=== PATIENT | female | born 1975 | race Two or more races ===

== ENCOUNTER → 2025-05-10 | Outpatient (CLI) | payer MEDICAID, SELFPAY ==
--- NOTE | 2025-05-10 15:00 | XR_ITS ---
Examination: Pelvic ultrasound, transabdominal, complete Technique: Transabdominal ultrasound of the pelvis performed using grayscale imaging Date and time of exam: May 10, 2025 1552 hours INDICATIONS: Irregular intermittent vaginal bleeding years FINDINGS: Uterus 13.4 cm diffuse leiomyomatous change No discrete solid uterine masses Benign uterine body cyst 14 mm Endometrial stripe 2.2 cm Right ovary 5.3 cm arterial flow 3.7 x 2.9 x 3.1 cm simple cyst Left ovary 2.5 cm arterial flow IMPRESSION: Diffuse leiomyomatous change within the uterus Endometrial stripe 2.2 cm, if the patient is postmenopausal recommend follow-up transvaginal pelvic sonography with specific attention to the endometrium
--- NOTE | 2025-05-10 15:00 | XR_ITS ---
Examination: Transvaginal ultrasound of the pelvis, complete Technique: Transvaginal sonographic images pelvis performed using godoy scale imaging Exam date and time: May 10, 2025 1552 hours INDICATIONS: Irregular vaginal bleeding beginning 3 years ago. FINDINGS: Uterus 12.7 cm diffuse leiomyomatous change Benign cysts Endometrial stripe 3.5 cm Right ovary 4.9 cm arterial flow 35 x 33 x 2 33 mm cyst Left ovary obscured by bowel gas IMPRESSION: Diffuse leiomyomatous change within the enlarged uterus Thickened endometrial stripe 3.5 cm, if the patient is postmenopausal this thickening is abnormal, endometrial hyperplasia versus early malignant neoplasm of the uterus, clinical correlation advised.
== END | disposition home or self-care (01) ==
PROVIDERS: PCP Nurse Practitioner Primary Care; Referring Provider Nurse Practitioner Primary Care; Visit Provider Nurse Practitioner Primary Care
DX: N85.2 Hypertrophy of uterus (principal); R93.89 Abnormal findings on diagnostic imaging of other specified body structures
CPT/HCPCS: 76830; 76856

== ENCOUNTER 2025-08-19 07:35 | Emergency (ER) | payer MEDICAID, SELFPAY ==
--- NOTE | 2025-08-19 08:03 | XR_ITS ---
EXAMINATION: XR sacrum coccyx min 2V ORDERING PROVIDER: VICKY Valdes HISTORY: trauma TECHNIQUE: 3 radiographs of the sacrum and coccyx were obtained. COMPARISON: None. FINDINGS: No acute fracture or dislocation. Alignment anatomic. Soft tissue swelling posterior to the coccyx. Probable injection granuloma subcutaneous soft tissues overlying the coccyx/sacrum. Mild degenerative changes of the bilateral hips and lower lumbar spine. IMPRESSION: Soft tissue swelling without acute bony findings.
--- NOTE | 2025-08-19 08:03 | XR_ITS ---
EXAMINATION: XR knee RT 3V ORDERING PROVIDER: VICKY Valdes HISTORY: trauma TECHNIQUE: 3 radiographs of the right knee were obtained. COMPARISON: None. FINDINGS: BONES: No acute fracture or dislocation. ALIGNMENT: Normal. JOINTS: Trace suprapatellar effusion. Minimal medial compartment osteophyte formation. BONY MINERALIZATION: Normal. SOFT TISSUES: Mild pretibial soft tissue swelling. IMPRESSION: Mild soft tissue swelling and small effusion without acute bony findings.
--- NOTE | 2025-08-19 08:05 | PD.EDLOWEX ---
Lower Extremity Injury RME/HPI General Chief Complaint: Extremity Injury, Lower Stated Complaint: HIT R) KNEE HARD ON FLOOR Time Seen by Provider: 08/19/25 07:41 Source: patient Arrival date/time: 08/19/25 07:35 50-year-old female with no known medical history presents to the emergency room with a chief complaint of right knee tenderness and swelling and sacrum pain after a ground-level fall that occurred yesterday afternoon. Mode of arrival: ambulatory Limitations: no limitations Related Data Home Medications ?Medication ?Instructions ?Recorded ?Confirmed No Known Home Medications 10/05/21 10/06/21 Allergies Allergy/AdvReac Type Severity Reaction Status Date / Time No Known Allergies Allergy Verified 08/19/25 07:38 Review of Systems Review of Systems Systems Reviewed: All systems reviewed, normal except as documented Constitutional Constitutional: Reports system reviewed and no additional complaints, except as documented, Denies fatigue, Denies fever(s), Denies headache(s) and Denies weakness Eyes Eyes: Reports system reviewed and no additional complaints, except as documented, Denies blurry vision and Denies change in vision ENT Ears, Nose, Mouth, and Throat: Reports system reviewed and no additional complaints, except as documented, Denies otalgia, Denies headache(s), Denies nasal congestion, Denies throat swelling and Denies vertigo Cardiovascular Cardiovascular: Reports system reviewed and no additional complaints, except as documented, Denies chest pain, Denies dyspnea and Denies dyspnea on exertion Respiratory Respiratory: Reports system reviewed and no additional complaints, except as documented, Denies chest congestion, Denies cough, Denies dyspnea, Denies dyspnea on exertion and Denies wheezing Gastrointestinal Gastrointestinal: Reports system reviewed and no additional complaints, except as documented, Denies abdominal pain, Denies cramping, Denies nausea and Denies vomiting Genitourinary Genitourinary: Reports system reviewed and no additional complaints, except as documented Musculoskeletal Musculoskeletal: Reports system reviewed and no additional complaints, except as documented, Reports abnormal gait, Reports arthralgias and Reports back pain Integumentary/Breasts Skin/Breast: Reports system reviewed and no additional complaints, except as documented and Denies wounds Neurologic Neurologic: Reports system reviewed and no additional complaints, except as documented, Reports abnormal gait, Denies confusion, Denies headache(s), Denies lack of coordination, Denies vertigo and Denies weakness Psychiatric Psychiatric: Reports system reviewed and no additional complaints, except as documented, Denies anxiety, Denies confusion, Denies depression, Denies paranoia, Denies suicidal ideation and Denies tactile hallucinations Endocrine Endocrine: Reports system reviewed and no additional complaints, except as documented and Denies fatigue Hematologic/Lymphatic Hematologic/Lymphatic: Reports system reviewed and no additional complaints, except as documented and Denies lymphadenopathy Allergic/Immunologic Allergic/Immunologic: Reports system reviewed and no additional complaints, except as documented, Denies throat swelling, Denies urticaria and Denies wheezing Past Medical History Past Medical History NEUROLOGIC: Negative Neurological Disorders or Seizures CARDIAC: Negative Cardiac Disorders, Congestive Heart Failure, Edema, Cellulitis or Varicose Veins RESPIRATORY: Negative Chronic Obstructive Pulmonary Disease (COPD), Tuberculosis, Pulmonary Embolism or Sleep Apnea GASTROINTESTINAL: Positive Gastrointestinal Disorders; Negative Hepatitis GENITOURINARY: Negative Genitourinary Disorders or Renal Disease REPRODUCTIVE: Positive Previous Pregnancies (X8) MUSCULOSKELETAL: Negative Musculoskeletal Disorders ENDOCRINE: Negative Endocrine Disorders, Diabetes Mellitus Type 1 or Diabetes Mellitus Type 2 HEMATOLOGIC: Negative Blood Disorders OTHER HISTORY: Negative Hospitalization, Autoimmune Disease, Shingles, Falls, Blood Transfusions, Blood Transfusion Reaction, Anesthesia Reactions, Chemotherapy, Radiation Therapy, Chicken Pox, Measles, Mumps or Cancer Family History FAMILY HISTORY: Positive Family Cardiac Disorders (MOTHER (HTN),FATHER (CHOLESTEROL)) and Family Surgery (MOTHER); Negative Family Psychiatric Problems, Family Respiratory Disorders, Family Gastrointestinal Problems, Family Cancer or Family Anesthesia Reaction Surgical History SURGICAL: Positive Section (X2); Negative Pacemaker Social History SMOKING STATUS: Never smoker ED Exam General Limitations: Present no limitations General appearance: Present alert and in no apparent distress Head Head exam: Present atraumatic Eye Eye exam: Present normal appearance, PERRL and EOMI ENT ENT exam: Present normal exam, normal oropharynx and mucous membranes moist Neck Neck exam: Present normal inspection, full ROM and trachea midline Chest Chest inspection: Present normal inspection and symmetric chest wall rise Respiratory Respiratory exam: Present normal lung sounds bilaterally Cardiovascular Cardiovascular exam: Present regular rate, normal rhythm and normal heart sounds Abdominal Exam Abdominal exam: Present soft and normal bowel sounds Extremities Exam Extremities exam: Present normal inspection and full ROM Expanded Lower Extremity Exam Hip/Pelvis exam: Present normal inspection Upper leg exam: Present normal inspection Knee exam: Present full ROM, tenderness and swelling Back Exam Back exam: Present normal inspection, full ROM and vertebral tenderness Back 1 view image:  1. Tenderness with palpation of the sacrum Neurological Exam Neurological exam: Present alert, oriented X3 and CN II-XII intact Psychiatric Psychiatric exam: Present normal affect and normal mood Skin Skin exam: Present warm, dry, intact and normal color Course Quality Measures none Orders Category Date Time Status XR knee RT 3V Stat Exams 08/19/25 08:03 Completed XR sacrum coccyx min 2V Stat Exams 08/19/25 08:03 Completed Vital Signs Vital signs: Vital Signs Temperature 98.5 F 08/19/25 08:09 Pulse Rate 89 08/19/25 08:09 Respiratory Rate 18 08/19/25 08:09 Blood Pressure 114/76 08/19/25 08:09 Pulse Oximetry (%) 99 08/19/25 08:09 Oxygen Delivery Method Room Air 08/19/25 08:09 Extremity Injury, Lower MDM Narrative MDM Narrative:: 50-year-old female with no known medical history presents to the emergency room with a chief complaint of right knee tenderness and swelling and sacrum pain after a ground-level fall that occurred yesterday afternoon. Patient is hemodynamically stable and in no apparent distress Physical examination shows tenderness and mild swelling in the right knee. The patient is ambulating and has full range of motion. Patient is also complaining of tenderness to the sacrum. Patient has tenderness with palpation of the sacrum and states she is having pain when sitting. X-ray of the knee and sacrum were completed and were negative for any acute fracture or dislocation Patient was discharged and educated to follow-up with primary care provider in the next 24 to 48 hours and return to the emergency room for any evidence of worsening signs or symptoms Patient data External records reviewed:: [facility] previous records Clinical information provided by:: patient Social determinants that could affect healthcare access:: none Patient has the following chronic illnesses:: No chronic illness How is presenting disease/condition affected by chronic disease/condition?: no chronic disease Evaluation data The following diagnostics were reviewed and interpreted by me:: lab results and radiology exam(s) Lab and/or radiology exams considered but not ordered:: Labs and radiology exams considered and ordered Interpretation Summary: X-ray sacrum-no acute fracture X-ray knee-no acute fracture or dislocation Medications / Prescriptions Medications or Prescriptions considered but not ordered:: Medication not given Medication administrations:: Rx given Consultations Consultation(s) initiated? (list below): No Diagnosis Extremity Injury, Lower Differential Diagnosis: other (Knee sprain/knee fracture/knee dislocation) Most likely diagnosis given after review of the tests above:: Knee sprain Admission Indicated Admission indicated?: not indicated Admission Request Was there a request for admission?: No Disposition Plan Disposition Plan: Discharge Discharge Attestation Discharge Attestation: The patient and all family members were given an opportunity to ask questions and understood the discharge instructions. Discharge instructions specifically effects, indications for sooner follow up or return to the emergency department, and the expected course of current diagnosis. Patient condition: Stable Discharge Plan Plan Patient Disposition: HOME (Self Care) Discharge Disposition comment: Stable Prescriptions/Referrals Prescriptions/Med Rec: No Action No Known Home Medications Referrals: Parisa Cole PA-C [Primary Care Provider] - In 1 week Problem List Clinical Impression: Knee sprain Patient/Caregiver Discharge Instructions Education Materials: ED CARIDAD Wrap, ED Knee Sprain Additional Instructions: Please follow-up with your primary care provider in the next 24 to 48 hours X-rays of your knee and back bone were negative for any acute fracture or dislocation For any evidence of worsening signs or symptoms return to the emergency room immediately Print Language: English Stand Alone Forms: Arabella Award Info., Work/School Release, Patient Portal Info Letter ROBERT/VICKY Supervising Physician ROEBRT/VICKY Supervising Physician: Dr. Jamison
[2025-08-19 08:09] VITALS: BP 114/76; PULSE 89; RESP 18; TEMP 36.9; O2SAT 99; BMI 29.2
[2025-08-19] MEDS: KETOROLAC INJ 60 MG/2 ML VIAL 30 MG IM (09:54)
== END 2025-08-19 10:06 | disposition home or self-care (01) ==
PROVIDERS: Emergency Provider Emergency Medicine; PCP Physician Assistant
DX: S83.91XA Sprain of unspecified site of right knee, initial encounter (principal); S39.92XA Unspecified injury of lower back, initial encounter; W18.30XA Fall on same level, unspecified, initial encounter
CPT/HCPCS: 72220; 73562; 96372; 99283; J1885